=== PATIENT | female | born 1985 | race Caucasian/White ===

== ENCOUNTER 2018-04-15 10:46 | Emergency (ER) | payer SELFPAY ==
[2018-04-15] MEDS ORDERED: IPRATROPIUM/ALBUTEROL 0.5-2.5 MG/3 ML AMPUL NEB ONE (13:12)
[2018-04-15] MEDS ORDERED: ONDANSETRON HCL INJ/PF 4 MG/2 ML SDV IV ONE (13:12)
--- NOTE | 2018-04-15 13:16 | ER Document Report ---
ED Medical Screen (RME) - General Chief Complaint: Abdominal Pain Stated Complaint: ABDOMINAL PAIN Time Seen by Provider: 04/15/18 12:58 Mode of Arrival: Ambulatory Information source: Patient Notes: 32-year-old female presents with bilateral low back pain, left lower quadrant abdominal pain, nausea, cough, wheezing. I have greeted and performed a rapid initial assessment of this patient. A comprehensive ED assessment and evaluation of the patient, analysis of test results and completion of medical decision making process we will be contacted by additional ED providers. PHYSICAL EXAMINATION: Vital signs reviewed GENERAL: Ill-appearing LUNGS: No respiratory distress Musculoskeletal: Normal range of motion NEUROLOGICAL: Normal speech, normal gait. PSYCH: Normal mood, normal affect. SKIN: Warm, Dry, normal turgor, no rashes or lesions noted. TRAVEL OUTSIDE OF THE [place] IN LAST 30 DAYS: No - HPI Onset: Other Onset/Duration: Persistent Quality of pain: Throbbing Severity: Moderate Associated Symptoms: Abdominal pain, Chills, Cough (productive), Nausea Exacerbated by: Denies Relieved by: Denies Similar symptoms previously: Yes Recently seen / treated by doctor: No - Related Data Smoking: Cigarettes Frequency of alcohol use: None Drug Abuse: None Allergies/Adverse Reactions: No Known Allergies Allergy (Verified 04/15/18 12:45) Past Medical History - Social History Frequency of alcohol use: None Drug Abuse: None Renal/ Medical History: Denies: Hx Peritoneal Dialysis Past Surgical History: Reports: Hx Gynecologic Surgery - , Hx Hysterectomy, Hx Oral Surgery Physical Exam - Vital signs Vitals: Temp Pulse Resp BP Pulse Ox 97.8 F 76 16 128/82 H 99 04/15/18 10:52 04/15/18 10:52 04/15/18 10:52 04/15/18 10:52 04/15/18 10:52 Course - Vital Signs Vital signs: Temp Pulse Resp BP Pulse Ox 97.8 F 76 16 128/82 H 99 04/15/18 10:52 04/15/18 10:52 04/15/18 10:52 04/15/18 10:52 04/15/18 10:52
[2018-04-15 13:29] LABS: ABSOLUTE BASOPHILS # (AUTO) 0.1 10^3/uL (0.0-0.2); ABSOLUTE EOSINOPHILS # (AUTO) 0.3 10^3/uL (0.0-0.6); ABSOLUTE LYMPHOCYTES (AUTO) 3.1 10^3/uL (0.5-4.7); ABSOLUTE MONOCYTES (AUTO) 0.8 10^3/uL (0.1-1.4); ABSOLUTE NEUT (AUTO) 5.6 10^3/uL (1.7-8.2); BASOPHILS % (AUTO) 0.7 % (0-2); HEMOGLOBIN 15.7 g/dL (12.0-15.5); LYMPHOCYTES % (AUTO) 31.4 % (13-45); MEAN CORPUSCULAR HEMOGLOBIN 29.3 pg (27.0-33.4); MEAN CORPUSCULAR VOLUME 86 fl (80-97); MONOCYTES % (AUTO) 7.9 % (3-13); PLATELET COUNT 277 10^3/uL (150-450); RED BLOOD COUNT 5.34 10^6/uL (3.72-5.28); RED CELL DISTRIBUTION WIDTH 15.7 % (11.5-14.0); TOTAL CELLS COUNTED % (AUTO) 100 %; WHITE BLOOD COUNT 9.9 10^3/uL (4.0-10.5)
[2018-04-15 13:39] LABS: AMORPHOUS SEDIMENT,URINE TRACE /HPF; APPEARANCE,URINE SLIGHTLY-CLOUDY; BILIRUBIN,URINE NEGATIVE (NEGATIVE); COLOR,URINE YELLOW; GLUCOSE, URINE NEGATIVE (NEGATIVE); KETONES,URINE NEGATIVE (NEGATIVE); LEUKOCYTE ESTERASE,URINE NEGATIVE (NEGATIVE); NITRITE,URINE NEGATIVE (NEGATIVE); PROTEIN,URINE NEGATIVE (NEGATIVE); URINE SPECIFIC GRAVITY 1.021; UROBILINOGEN,URINE NEGATIVE mg/dL (<2.0)
[2018-04-15 13:48] LABS: ALANINE AMINOTRANSFERASE 37 U/L (9-52); ALBUMIN 5.1 g/dL (3.5-5.0); ALKALINE PHOSPHATASE 117 U/L (38-126); ANION GAP 11 (5-19); ASPARTATE AMINO TRANSFERASE 31 U/L (14-36); BILIRUBIN,DIRECT 0.3 mg/dL (0.0-0.4); BILIRUBIN,TOTAL 0.6 mg/dL (0.2-1.3); BLOOD UREA NITROGEN 11 mg/dL (7-20); CARBON DIOXIDE 24 mmol/L (22-30); CHLORIDE 109 mmol/L (98-107); GLUCOSE 100 mg/dL (75-110); LIPASE 85.8 U/L (23-300); POTASSIUM 4.6 mmol/L (3.6-5.0); SODIUM 143.7 mmol/L (137-145); TOTAL PROTEIN 8.8 g/dL (6.3-8.2)
--- NOTE | 2018-04-15 14:08 | RADIOLOGY REPORT (SQ) ---
EXAM DESCRIPTION: CHEST 2 VIEWS COMPLETED DATE/TIME: 04/15/2018 1:47 pm REASON FOR STUDY: cough wheezing COMPARISON: None. EXAM PARAMETERS: NUMBER OF VIEWS: two views TECHNIQUE: Digital Frontal and Lateral radiographic views of the chest acquired. RADIATION DOSE: NA LIMITATIONS: none FINDINGS: LUNGS AND PLEURA: No opacities, masses or pneumothorax. No pleural effusion. MEDIASTINUM AND HILAR STRUCTURES: No masses or contour abnormalities. HEART AND VASCULAR STRUCTURES: Heart normal size. No evidence for failure. BONES: No acute findings. HARDWARE: None in the chest. OTHER: No other significant finding. IMPRESSION: NO ACUTE RADIOGRAPHIC FINDING IN THE CHEST. TECHNICAL DOCUMENTATION: JOB ID: [id number] [employer]- All Rights Reserved Reading location - IP/workstation name: [email or web address]
[2018-04-15] MEDS ORDERED: MORPHINE SULFATE 10 MG/ML INJ IV ONE (14:10)
--- NOTE | 2018-04-15 16:28 | ER Document Report ---
ED General - General Chief Complaint: Abdominal Pain Stated Complaint: ABDOMINAL PAIN Time Seen by Provider: 04/15/18 12:58 Mode of Arrival: Ambulatory TRAVEL OUTSIDE OF THE [place] IN LAST 30 DAYS: No - HPI Notes: Patient is a 32-year-old female that presents to the emergency department for chief complaint of abdominal pain and low back pain. Patient reports achy bilateral low back pain for the past 1-1.5 weeks. She states it feels like a pressure when she is laying backwards. She denies any pain with range of motion. She denies any injury to her low back. She is states the pain is nonradiating with no relieving factors. She has not taken any aenj-ukk-bnpgjeo medication for her pain. She also reports associated nausea with no vomiting. She reports 1-2 episodes of diarrhea over the last week as well. She denies any fevers but has had intermittent chills. Patient is concerned about a mass in her left lower abdomen. She states she first noticed it about a year ago. She was seen in December 2017 and was advised to get a CT scan which was never done because there was a in her family. Patient states she feels like this mass is getting bigger. She does report a history of cancer in 2017 that was treated with hysterectomy. She did not have chemotherapy or radiation. Patient is concerned the mass may be cancerous. She also states she has had a cough for the last few years and feels wheezy. She denies any change in her wheezing or cough today. Past Medical History: History of uterine cancer Past Surgical History: Hysterectomy Social History: Daily tobacco. Denies alcohol and drug use Family History: Reviewed and noncontributory for presenting illness Allergies: Reviewed, see documented allergy list. REVIEW OF SYSTEMS: CONSTITUTIONAL : No fever chills No diaphoresis No recent illness EENT: No vision changes No congestion No sore throat CARDIOVASCULAR: No chest pain No palpitations RESPIRATORY: No shortness of breath cough No difficulty breathing GASTROINTESTINAL: abdominal pain nausea No vomiting diarrhea GENITOURINARY: No dysuria No hematuria No difficulty urinating MUSCULOSKELETAL: back pain No leg pain No arm pain SKIN: No rashes No lesions LYMPHATIC: No swollen, enlarged glands. NEUROLOGICAL: No lightheadedness No headache No weakness No paresthesias PSYCHIATRIC: No anxiety No depression PHYSICAL EXAMINATION: Vital signs reviewed, nursing noted reviewed. GENERAL: Well-appearing, well-nourished and in no acute distress. HEAD: Atraumatic, normocephalic. EYES: Eyes appear normal, extraocular movements intact, sclera anicteric, conjunctiva are normal. ENT: nares patent, oropharynx clear without exudates. Moist mucous membranes. NECK: Normal range of motion, supple without lymphadenopathy LUNGS: Bilateral diffuse wheezing, no tachypnea, no accessory muscle use HEART: Regular rate and rhythm without murmurs ABDOMEN: 2.0 cm well-circumscribed tender mass in left lower abdomen that feels superficial in the subcutaneous tissue, there is no overlying skin changes. No rebound, guarding, or rigidity. No masses appreciated. EXTREMITIES: Nontender, good range of motion, no pitting or edema. Back: Normal range of motion. No midline or paraspinal thoracic or lumbar tenderness NEUROLOGICAL: No focal neurological deficits. Moves all extremities spontaneously Motor and sensory grossly intact on exam. PSYCH: Normal mood, normal affect. SKIN: Warm, Dry, normal turgor, no rashes or lesions noted on exposed skin - Related Data Allergies/Adverse Reactions: No Known Allergies Allergy (Verified 04/15/18 12:45) Past Medical History - General Information source: Patient - Social History Smoking Status: Current Every Day Smoker Frequency of alcohol use: None Drug Abuse: None Family History: Reviewed & Not Pertinent Patient has suicidal ideation: No Patient has homicidal ideation: No Renal/ Medical History: Denies: Hx Peritoneal Dialysis Past Surgical History: Reports: Hx Gynecologic Surgery - , Hx Hys terectomy, Hx Oral Surgery Physical Exam - Vital signs Vitals: Temp Pulse Resp BP Pulse Ox 97.8 F 76 16 128/82 H 99 04/15/18 10:52 04/15/18 10:52 04/15/18 10:52 04/15/18 10:52 04/15/18 10:52 Course - Re-evaluation Re-evalutation: 04/15/18 16:27 Vitals reviewed. Nursing notes reviewed. Patient is afebrile and nontoxic in appearance. She was ordered DuoNeb for her wheezing. Patient is a daily smoker and was counseled on tobacco cessation as well as albuterol use for her wheezing. Chest x-ray shows no acute process. Patient's blood work is normal. Because of her history of cancer and a palpable left lower abdominal mass CT scan will be ordered to further evaluate her symptoms. Patient does feel improved after receiving antiemetics and pain medication in triage. Laboratory 04/15/18 04/15/18 04/15/18 12:50 13:15 13:15 WBC 9.9 RBC 5.34 H Hgb 15.7 H Hct 46.0 MCV 86 MCH 29.3 MCHC 34.0 RDW 15.7 H Plt Count 277 Seg Neutrophils % 57.0 Lymphocytes % 31.4 Monocytes % 7.9 Eosinophils % 3.0 Basophils % 0.7 Absolute Neutrophils 5.6 Absolute Lymphocytes 3.1 Absolute Monocytes 0.8 Absolute Eosinophils 0.3 Absolute Basophils 0.1 Sodium 143.7 Potassium 4.6 Chloride 109 H Carbon Dioxide 24 Anion Gap 11 BUN 11 Creatinine 0.63 Est GFR ( Amer) > 60 Est GFR (Non-Af Amer) > 60 Glucose 100 Calcium 10.0 Total Bilirubin 0.6 Direct Bilirubin 0.3 Neonat Total Bilirubin Not Reportable Neonat Direct Bilirubin Not Reportable Neonat Indirect Bili Not Reportable AST 31 ALT 37 Alkaline Phosphatase 117 Total Protein 8.8 H Albumin 5.1 H Lipase 85.8 Urine Color YELLOW Urine Appearance SLIGHTLY-CLOUDY Urine pH 6.0 Ur Specific Custer 1.021 Urine Protein NEGATIVE Urine Glucose (UA) NEGATIVE Urine Ketones NEGATIVE Urine Blood NEGATIVE Urine Nitrite NEGATIVE Urine Bilirubin NEGATIVE Urine Urobilinogen NEGATIVE Ur Leukocyte Esterase NEGATIVE Urine WBC (Auto) 2 Urine RBC (Auto) 8 Urine Bacteria (Auto) TRACE Squamous Epi Cells Auto 6 Amorphous Sediment Auto TRACE Urine Mucus (Auto) FEW Urine Ascorbic Acid NEGATIVE Urine HCG, Qual NEGATIVE Chest X-Ray 04/15/18 13:10 IMPRESSION: NO ACUTE RADIOGRAPHIC FINDING IN THE CHEST. 04/15/18 18:[address] scan does show 2 small ventral hernias. I discussed the area of patient's concern with the radiologist. There is a small nonspecific subcutaneous enhancement on slight 81 that may be a new mass. I did advise patient to follow with her primary care to discuss biopsy versus repeat imaging since the mass seems to be growing over the last few months. The remainder of her workup is unremarkable. She will be discharged home in stable condition for further outpatient management. Abdomen/Pelvis CT 04/15/18 00:00 IMPRESSION: There are 2 small ventral hernias. There are no acute findings in the abdomen or pelvis. Chest X-Ray 04/15/18 13:10 IMPRESSION: NO ACUTE RADIOGRAPHIC FINDING IN THE CHEST. - Vital Signs Vital signs: Temp Pulse Resp BP Pulse Ox 97.8 F 76 16 128/82 H 99 04/15/18 10:52 04/15/18 10:52 04/15/18 10:52 04/15/18 10:52 04/15/18 10:52 - Laboratory Result Diagrams: 04/15/18 13:15 04/15/18 13:15 Laboratory results interpreted by me: 04/15/18 04/15/18 13:15 13:15 RBC 5.34 H Hgb 15.7 H RDW 15.7 H Chloride 109 H Total Protein 8.8 H Albumin 5.1 H Discharge - Discharge Clinical Impression: Subcutaneous mass, Wheezing Back pain Qualifiers: Back pain location: low back pain Chronicity: acute Back pain laterality: bilateral Sciatica presence: without sciatica Qualified Code(s): M54.5 - Low back pain Condition: Stable Disposition: HOME, SELF-CARE Instructions: Bronchitis With Bronchospasm (Wheezing) ([facility]), Abdominal Pain ([facility]), Low Back Pain ([facility]) Additional Instructions: Please return to the emergency department if you have any worsening, or concern of your symptoms. Please return to the emergency department if you develop chest pain, difficulty breathing, severe abdominal pain, or ongoing vomiting. Please follow-up with your primary care physician in 2-3 days and any other recommended physicians. If prescribed, take all medications as directed. If you have any questions or concerns do not hesitate to return the emergency department for evaluation. There is a nonspecific finding on your CT scan where you are feeling the nodule in your left lower abdomen. Given your history of cancer further investigation to the etiology of this mass is warranted. Please follow with your primary care doctor to discuss arranging biopsy or follow-up imaging. Prescriptions: Albuterol Sulfate [Proair HFA Inhalation Aerosol 8.5 gm MDI] 2 puff IH Q4H PRN #1 mdi PRN Reason: wheezing Forms: Smoking Cessation Education Referrals: [facility] [Provider Group] - Follow up in 3-5 days
--- NOTE | 2018-04-15 17:40 | RADIOLOGY REPORT (SQ) ---
EXAM DESCRIPTION: CT ABD/PELVIS WITH IV ORAL COMPLETED DATE/TIME: 04/15/2018 4:47 pm REASON FOR STUDY: h/o abd mass COMPARISON: None. TECHNIQUE: CT scan of the abdomen and pelvis performed using helical scanning technique with dynamic intravenous contrast injection. Oral contrast. Images reviewed with lung, soft tissue, and bone win dows. Reconstructed coronal and sagittal MPR images reviewed. Delayed images for evaluation of the ur inary system also acquired. All images stored on PACS. All CT scanners at this facility use dose modulation, iterative reconstruction, and/or weight based d osing when appropriate to reduce radiation dose to as low as reasonably achievable (ALARA). [facility]: Dose Right [facility]: CareDose [facility]: Dose Right [facility]: Teradose 4D [facility]: [employer] CONTRAST TYPE AND DOSE: contrast/concentration: Isovue 350.00 mg/ml; Total Contrast Delivered: 96.0 ml; Total Saline Delivered: 71.0 ml RENAL FUNCTION: BUN 11 creatinine 0.63 RADIATION DOSE: CT Rad equipment meets quality standard of care and radiation dose reduction techniq ues were employed. CTDIvol: 16.2 - 19.8 mGy. DLP: 1970 mGy-cm.. LIMITATIONS: None. FINDINGS: LOWER CHEST: No significant findings. No nodules or infiltrates. LIVER: Normal size. No masses. No dilated ducts. SPLEEN: Normal size. No focal lesions. PANCREAS: No masses. No significant calcifications. No adjacent inflammation or peripancreatic fluid collections. Pancreatic duct not dilated. GALLBLADDER: No identified stones by CT criteria. No inflammatory changes to suggest cholecystitis. ADRENAL GLANDS: No significant masses or asymmetry. RIGHT KIDNEY AND URETER: No solid masses. No significant calcifications. No hydronephrosis or hyd roureter. LEFT KIDNEY AND URETER: No solid masses. No significant calcifications. No hydronephrosis or hydr oureter. AORTA AND VESSELS: No aneurysm. No dissection. Renal arteries, SMA, celiac without stenosis. RETROPERITONEUM: No retroperitoneal adenopathy, hemorrhage or masses. BOWEL AND PERITONEAL CAVITY: No masses or inflammatory changes. No free fluid or peritoneal masses. APPENDIX: Normal. PELVIS: No mass. No free fluid. Normal bladder. ABDOMINAL WALL: There is a tiny ventral hernia just to the right in midline disc that contains only f at. Image 47. Small umbilical hernia contains only fat. See image 53. BONES: No significant or acute findings. OTHER: No other significant finding. IMPRESSION: There are 2 small ventral hernias. There are no acute findings in the abdomen or pelvis . TECHNICAL DOCUMENTATION: JOB ID: [id number] Quality ID # [id number]: Final reports with documentation of one or more dose reduction techniques (e.g., Au tomated exposure control, adjustment of the mA and/or kV according to patient size, use of iterative reconstruction technique) 2010 [employer]- All Rights Reserved Reading location - IP/workstation name: [email or web address]
[2018-04-15 18:34] VITALS: BP 105/68
== END 2018-04-15 18:34 | disposition home or self-care (01) ==
LOC: ER 10:46
DX: R10.9 Unspecified abdominal pain (principal); M54.5 Low back pain; R19.7 Diarrhea, unspecified; Z90.710 Acquired absence of both cervix and uterus; R06.2 Wheezing; R19.04 Left lower quadrant abdominal swelling, mass and lump; F17.210 Nicotine dependence, cigarettes, uncomplicated; Z85.42 Personal history of malignant neoplasm of other parts of uterus
CPT/HCPCS: 94640; 99284; 96374; 96375; 36415; 83690; 85025; 81025; 80053; 81001; 71046; 74177; J2270; J2405; J7620

== ENCOUNTER 2018-11-14 11:25 | Emergency (ER) | payer SELFPAY ==
[2018-11-14] MEDS ORDERED: IBUPROFEN 800 MG TABLET PO ONE (11:46)
--- NOTE | 2018-11-14 11:46 | ER Document Report ---
ED Medical Screen (RME) - General Chief Complaint: Hand Injury Stated Complaint: HAND INJURY Time Seen by Provider: 11/14/18 11:43 Mode of Arrival: Ambulatory Information source: Patient Notes: This 33-year-old female presents emergency department with complaints of right hand right wrist pain. Reports she tripped over her puppy the other day and landed on her wrist and hand. Reports tender snuffbox. Thenar area is swollen ecchymosis. Patient is right-handed I have greeted and performed a rapid initial assessment of this patient. A comprehensive ED assessment and evaluation of the patient, analysis of test results and completion of the medical decision making process will be conducted by additional ED providers. Dictation of this chart was performed using voice recognition software; therefore, there may be some unintended grammatical errors. TRAVEL OUTSIDE OF THE [place] IN LAST 30 DAYS: No - Related Data Allergies/Adverse Reactions: No Known Allergies Allergy (Verified 11/14/18 11:39) Past Medical History - Social History Chew tobacco use (# tins/day): No Frequency of alcohol use: None Drug Abuse: None Renal/ Medical History: Denies: Hx Peritoneal Dialysis Past Surgical History: Reports: Hx Gynecologic Surgery - , Hx Hysterectomy, Hx Oral Surgery Physical Exam - Vital signs Vitals: Temp Pulse Resp BP Pulse Ox 97.9 F 74 16 130/74 H 98 11/14/18 11:28 11/14/18 11:28 11/14/18 11:28 11/14/18 11:28 11/14/18 11:28 Course - Vital Signs Vital signs: Temp Pulse Resp BP Pulse Ox 97.9 F 74 16 130/74 H 98 11/14/18 11:28 11/14/18 11:28 11/14/18 11:28 11/14/18 11:28 11/14/18 11:28
--- NOTE | 2018-11-14 12:46 | RADIOLOGY REPORT (SQ) ---
EXAM DESCRIPTION: HAND RIGHT 3 VIEWS COMPLETED DATE/TIME: 11/14/2018 12:08 pm REASON FOR STUDY: hand injury tender snuff box COMPARISON: None. EXAM PARAMETERS: NUMBER OF VIEWS: Three views. TECHNIQUE: AP, lateral and oblique radiographic images acquired of the right hand. LIMITATIONS: None. FINDINGS: MINERALIZATION: Normal. BONES: No acute fracture or dislocation. No worrisome bone lesions. JOINTS: No effusions. SOFT TISSUES: No soft tissue swelling. No foreign body. OTHER: No other significant finding. IMPRESSION: NEGATIVE STUDY OF THE RIGHT HAND. NO RADIOGRAPHIC EVIDENCE OF ACUTE INJURY. TECHNICAL DOCUMENTATION: JOB ID: [id number] [employer]- All Rights Reserved Reading location - IP/workstation name: [email or web address]
--- NOTE | 2018-11-14 12:47 | RADIOLOGY REPORT (SQ) ---
EXAM DESCRIPTION: WRIST RIGHT 3 VIEWS COMPLETED DATE/TIME: 11/14/2018 12:08 pm REASON FOR STUDY: hand injury tender snuff box COMPARISON: None. NUMBER OF VIEWS: Three views. TECHNIQUE: AP, lateral, and oblique radiographic images acquired of the right wrist. LIMITATIONS: None. FINDINGS: MINERALIZATION: Normal. BONES: No acute fracture or dislocation. No worrisome bone lesions. Normal alignment. SOFT TISSUES: No soft tissue swelling. No foreign body. OTHER: No other significant finding. IMPRESSION: NEGATIVE STUDY OF THE RIGHT WRIST. NO RADIOGRAPHIC EVIDENCE OF ACUTE INJURY. TECHNICAL DOCUMENTATION: JOB ID: [id number] [employer]- All Rights Reserved Reading location - IP/workstation name: [email or web address] FRONT END [email or web address]
--- NOTE | 2018-11-14 13:21 | ER Document Report ---
HPI - HPI Time Seen by Provider: 11/14/18 11:43 Pain Level: 3 Notes: Patient is a 33-year-old female no significant past medical history presents complaining of right lateral anterior palm bruising and right thumb pain status post injury 2 days ago. Patient states that she fell on an outstretched hand. Patient states that she has had swelling and bruising since then with pain more so associated with the thumb. The pain does not radiate. Denies drug allergies. Denies any headache, fever, head injury, neck pain, URI, sore throat, chest pain, palpitations, syncope, cough, shortness of breath, wheeze, dyspnea, abdominal pain, nausea/vomiting/diarrhea, urinary retention, dysuria, hematuria, loss of control of bowel or bladder, numbness/tingling, muscle paralysis, or rash. - ROS Systems Reviewed and Negative: Yes All other systems reviewed and negative - REPRODUCTIVE Reproductive: DENIES: : - MUSCULOSKELETAL Musculoskeletal: REPORTS: Extremity pain - R Hand Past Medical History - General Information source: Patient - Social History Smoking Status: Current Every Day Smoker Chew tobacco use (# tins/day): No Frequency of alcohol use: Occasional Drug Abuse: None Family History: Reviewed & Not Pertinent Patient has suicidal ideation: No Patient has homicidal ideation: No Renal/ Medical History: Denies: Hx Peritoneal Dialysis Past Surgical History: Reports: Hx Gynecologic Surgery - , Hx Hysterectomy, Hx Oral Surgery Vertical Provider Document - CONSTITUTIONAL Agree With Documented VS: Yes Notes: PHYSICAL EXAMINATION: GENERAL: Well-appearing, well-nourished and in no acute distress. HEAD: Atraumatic, normocephalic. NECK: Normal range of motion, supple without lymphadenopathy. No midline tenderness. LUNGS: Breath sounds clear to auscultation bilaterally and equal. No wheezes rales or rhonchi. HEART: Regular rate and rhythm without murmurs, rubs, gallops. Musculoskeletal: Rt hand/wrist: + swelling and ecchymosis to the rt thenar eminence area with + tenderness to the area and area of the scaphoid/rt thumb. No erythema, warmth, or deformity noted. N/V intact distal. FROM to passive/active at the wrist/fingers. Strength 4+/5 to venereal disease control head. Tinel/phalen neg. No other bony tenderness. Gamekeeper seems negative, but limited exam overall. Extremities: No cyanosis, clubbing, or edema b/l. Peripheral pulses 2+. Capillary refill less than 3 seconds. NEUROLOGICAL: Normal speech, normal gait. Normal sensory, motor exams otherwise unremarkable PSYCH: Normal mood, normal affect. SKIN: see above. No rash - INFECTION CONTROL TRAVEL OUTSIDE OF THE [place] IN LAST 30 DAYS: No Course - Re-evaluation Re-evalutation: 11/14/18 Patient is an afebrile, well-hydrated, 33-year-old female who presents to the ED with Rt thumb pain which I suspect to be a contusion vs sprain/strain. Vitals are acceptable without any significant tachycardia, tachypnea, or hypoxia. PE is otherwise unremarkable for any neurovascular compromise, obvious tendon/ligament rupture, obvious fracture/dislocation, septic joint. X-ray was unremarkable for any acute pathology. I did review the possibility of scaphoid involvement as well as gamekeeper's thumb with the patient which is why we placed a thumb spica splint. Patient is nontoxic-appearing. No other labs or imaging warranted at this time based on H&P. Conservative measures otherwise for symptoms. Recheck with your PCM in 3-5 days. Patient is to schedule an appointment with orthopedics for further evaluation and management. Return to the ED with any worsening/concerning symptoms otherwise as reviewed in discharge. Patient is in agreement. - Vital Signs Vital signs: Temp Pulse Resp BP Pulse Ox 97.9 F 74 16 130/74 H 98 11/14/18 11:28 11/14/18 11:28 11/14/18 11:28 11/14/18 11:28 11/14/18 11:28 Procedures - Immobilization Right Thumb Pre-Proc Neuro Vasc Exam: Normal Immobilizer type: Thumb spica Performed by: PCT Post-Proc Neuro Vasc Exam: Normal, Unchanged from pre-exam Discharge - Discharge Clinical Impression: Pain of right thumb Condition: Stable Disposition: HOME, SELF-CARE Additional Instructions: Rest, Ice, Compression, Elevation Use splint as directed Tylenol/ibuprofen as needed F/u with your PCP in 3-5 days for a recheck Call orthopedics today/tomorrow to schedule an appointment for further evaluation and management Return to the ED with any worsening symptoms and/or development of fever, headache, chest pain, palpitations, syncope, shortness of breath, trouble breathing, abdominal pain, n/v/d, muscle weakness/paralysis, numbness/tingling, swelling, redness, or other worsening symptoms that are concerning to you. Forms: Elevated Blood Pressure, Smoking Cessation Education Referrals: HERBERT ROLLE MD [ACTIVE PROVISIONAL STAFF] - Follow up as needed PORTER CORONADO DO [ACTIVE STAFF] - Follow up as needed
[2018-11-14 13:46] VITALS: BP 107/77
== END 2018-11-14 13:46 | disposition home or self-care (01) ==
LOC: ER 11:25
DX: M79.644 Pain in right finger(s) (principal); S60.221A Contusion of right hand, initial encounter; W01.0XXA Fall on same level from slipping, tripping and stumbling without subsequent striking against object, initial encounter; F17.200 Nicotine dependence, unspecified, uncomplicated
CPT/HCPCS: 99283

== ENCOUNTER 2019-01-28 22:06 | Emergency (ER) | payer MEDICAID ==
--- NOTE | 2019-01-28 22:25 | ER Document Report ---
ED Medical Screen (RME) - General Stated Complaint: STOMACH PAIN Time Seen by Provider: 01/28/19 22:18 Mode of Arrival: Ambulatory Information source: Patient Notes: 33-year-old female presents today with complaints of abdominal distention stomach pain for the past 2 nights with some diarrhea. She reports she is feeling constipated and nauseated. 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 Patient abdomen is distended firm to touch. She reports she is been taking Tylenol Motrin without relief of symptoms. Declines nausea medicine. I have greeted and performed a rapid initial assessment of this patient. A comprehensive ED assessment and evaluation of the patient, analysis of test results and completion of the medical decision making process will be conducted by additional ED providers. Dictation of this chart was performed using voice recognition software; therefore, there may be some unintended grammatical errors. TRAVEL OUTSIDE OF THE [place] IN LAST 30 DAYS: No - Related Data Allergies/Adverse Reactions: No Known Allergies Allergy (Verified 01/28/19 22:16) Past Medical History Renal/ Medical History: Denies: Hx Peritoneal Dialysis Past Surgical History: Reports: Hx Gynecologic Surgery - , Hx Hysterectomy, Hx Oral Surgery Physical Exam - Vital signs Vitals: Temp Pulse Resp BP Pulse Ox 97.7 F 85 20 134/82 H 98 01/28/19 22:16 01/28/19 22:16 01/28/19 22:16 01/28/19 22:16 01/28/19 22:16 Course - Vital Signs Vital signs: Temp Pulse Resp BP Pulse Ox 97.7 F 85 20 134/82 H 98 01/28/19 22:16 01/28/19 22:16 01/28/19 22:16 01/28/19 22:16 01/28/19 22:16
[2019-01-28 22:59] LABS: ABSOLUTE BASOPHILS # (AUTO) 0.1 10^3/uL (0.0-0.2); ABSOLUTE EOSINOPHILS # (AUTO) 0.3 10^3/uL (0.0-0.6); ABSOLUTE MONOCYTES (AUTO) 0.9 10^3/uL (0.1-1.4); ABSOLUTE NEUT (AUTO) 6.5 10^3/uL (1.7-8.2); BASOPHILS % (AUTO) 0.8 % (0-2); EOSINOPHILS % (AUTO) 2.8 % (0-6); HEMATOCRIT 44.2 % (36.0-47.0); LYMPHOCYTES % (AUTO) 33.9 % (13-45); MEAN CORPUSCULAR HEMOGLOBIN 30.6 pg (27.0-33.4); MEAN CORPUSCULAR VOLUME 90 fl (80-97); MONOCYTES % (AUTO) 7.6 % (3-13); PLATELET COUNT 289 10^3/uL (150-450); RED CELL DISTRIBUTION WIDTH 13.5 % (11.5-14.0); SEGMENTED NEUTROPHILS % (AUTO) 54.9 % (42-78); TOTAL CELLS COUNTED % (AUTO) 100 %; WHITE BLOOD COUNT 11.9 10^3/uL (4.0-10.5)
[2019-01-28 23:01] LABS: APPEARANCE,URINE CLOUDY; BILIRUBIN,URINE NEGATIVE (NEGATIVE); COLOR,URINE YELLOW; GLUCOSE, URINE NEGATIVE (NEGATIVE); KETONES,URINE NEGATIVE (NEGATIVE); LEUKOCYTE ESTERASE,URINE NEGATIVE (NEGATIVE); NITRITE,URINE NEGATIVE (NEGATIVE); PROTEIN,URINE NEGATIVE (NEGATIVE); UROBILINOGEN,URINE NEGATIVE mg/dL (<2.0)
[2019-01-28 23:11] LABS: ALBUMIN 4.3 g/dL (3.5-5.0); ALKALINE PHOSPHATASE 108 U/L (38-126); ANION GAP 12 (5-19); ASPARTATE AMINO TRANSFERASE 28 U/L (14-36); BILIRUBIN,DIRECT 0.2 mg/dL (0.0-0.4); BILIRUBIN,TOTAL 0.4 mg/dL (0.2-1.3); BLOOD UREA NITROGEN 18 mg/dL (7-20); CALCIUM 9.7 mg/dL (8.4-10.2); CARBON DIOXIDE 24 mmol/L (22-30); CHLORIDE 103 mmol/L (98-107); GLUCOSE 105 mg/dL (75-110); POTASSIUM 4.6 mmol/L (3.6-5.0); TOTAL PROTEIN 8.2 g/dL (6.3-8.2)
--- NOTE | 2019-01-28 23:46 | RADIOLOGY REPORT (SQ) ---
EXAM DESCRIPTION: [facility]: US ABDOMEN CLINICAL HISTORY: 33 years Female; abd pain swelling hx mass TECHNIQUE: Abdominal ultrasound was performed. COMPARISON: CT 04/15/2018 FINDINGS: Liver: 19 cm long, somewhat echogenic. No intrahepatic ductal distention. No focal lesions. Gallbladder: normal with no gallstones or sonographic evidence for acute cholecystitis. Common bile duct: 4 mm. Pancreas: visualized portions are unremarkable. Spleen: 10.9 cm. Portal venous flow is hepatopedal, normal. No free fluid. Right kidney: 13.3 x 4.1 x 6.3 cm. No hydronephrosis. Left kidney: 12.1 x 6.2 x 5.3 cm. No hydronephrosis. Aorta:Visualized portions are within normal limits. IVC: Visualized portions are within normal limits. In the area of complaint superior to the umbilicus, there are no abnormalities of the anterior abdominal wall. Note that a fat-containing umbilical hernia was present in this area on 04/15/2018. IMPRESSION: 1. No acute findings 2. Hepatic steatosis 3. No lesion in the anterior abdominal wall, although a fat-containing hernia may not be apparent with this technique.
[2019-01-29] MEDS ORDERED: ACETAMINOPHEN 325 MG TABLET PO ONE (02:25)
[2019-01-29] MEDS ORDERED: ONDANSETRON HCL INJ/PF 4 MG/2 ML SDV IV ONE (02:34)
[2019-01-29] MEDS ORDERED: HYDROMORPHONE HCL INJ/PF 2 MG/ML AMPULE IV ONE (02:34)
[2019-01-29] MEDS ORDERED: NORMAL SALINE 1000 ML 1,000 ML IV ONE (02:34)
--- NOTE | 2019-01-29 02:37 | ER Document Report ---
ED GI/ - General Chief Complaint: Abdominal Pain Stated Complaint: STOMACH PAIN Time Seen by Provider: 01/28/19 22:18 Primary Care Provider: [facility] [Provider Group] - Follow up tomorrow Mode of Arrival: Ambulatory Notes: Patient is a 33-year-old female that comes to the emergency department for chief complaint of sharp mid abdominal pain that started earlier today. She reports nausea but she denies vomiting. Pain is around the umbilicus. She states she thinks she felt "a mass" sticking out and she became very afraid. She states she has had a cough for several days now. She also states she had a firm bowel movement earlier today. She denies hematochezia. She has had a complete hysterectomy, , oral surgery, denies any daily medications, denies medical history otherwise. She smokes. TRAVEL OUTSIDE OF THE [place] IN LAST 30 DAYS: No - Related Data Allergies/Adverse Reactions: No Known Allergies Allergy (Verified 01/28/19 22:16) Past Medical History - General Information source: Patient - Social History Smoking Status: Current Every Day Smoker Smoking Education Provided: Yes - <3 min Frequency of alcohol use: None Drug Abuse: None Lives with: Family Family History: Reviewed & Not Pertinent Patient has suicidal ideation: No Patient has homicidal ideation: No Renal/ Medical History: Denies: Hx Peritoneal Dialysis Past Surgical History: Reports: Hx Gynecologic Surgery - , Hx Hysterectomy, Hx Oral Surgery - Immunizations Immunizations up to date: Yes Hx Diphtheria, Pertussis, Tetanus Vaccination: Yes Review of Systems - Review of Systems Constitutional: No symptoms reported EENT: No symptoms reported Cardiovascular: No symptoms reported Respiratory: No symptoms reported Gastrointestinal: See HPI Genitourinary: No symptoms reported Female Genitourinary: No symptoms reported Musculoskeletal: No symptoms reported Skin: No symptoms reported Hematologic/Lymphatic: No symptoms reported Neurological/Psychological: No symptoms reported Physical Exam - Vital signs Vitals: Temp Pulse Resp BP Pulse Ox 97.7 F 85 20 134/82 H 98 01/28/19 22:16 12 22:16 12 22:16 01/28/19 22:16 01/28/19 22:16 - Notes Notes: GENERAL: Alert and interactive, anxious HEAD: Normocephalic, atraumatic. EYES: Pupils equal, round, and reactive to light. Extraocular movements intact. ENT: Oral mucosa moist, tongue midline. Oropharynx unremarkable. Airway patent. NECK: Full range of motion. Supple. Trachea midline. LUNGS: Clear to auscultation bilaterally, no wheezes, rales, or rhonchi. No respiratory distress. HEART: Regular rate and rhythm. No murmur ABDOMEN: Scar that is vertical at the umbilicus. Adjacent to this there appears to be a ventral hernia which is borderline, no overt hernia sticking out or strangulation. No rigidity or guarding, no discoloration. GENITOURINARY: Deferred EXTREMITIES: Moves all 4 extremities spontaneously. No edema, normal radial and dorsalis pedis pulses bilaterally. No cyanosis. BACK: no cervical, thoracic, lumbar midline tenderness. No saddle anesthesia, normal distal neurovascular exam. Moves all extremities in full range of motion. NEUROLOGICAL: Alert and oriented x3. Normal speech. Cranial nerves II through XII grossly intact. PSYCH: Anxious, restless, tearful SKIN: Warm, dry, normal turgor. No rashes or lesions noted. Course - Re-evaluation Re-evalutation: Patient with some tenderness over what appears to be a ventral hernia although there does not appear to be incarcerated hernia. This does appear to go back in. Patient initially anxious and mildly uncomfortable but after I discussed with her she became calm and relaxed. She does report some pain and she was given pain medication for this. Ultrasound nonspecific, CBC, chemistry also nonspecific, test had been ordered on protocol. Discussed with patient. She states she would like to be completely evaluated by CAT scan imaging to make sure she has a hernia and then she is hoping to leave. CT does indicate supra umbilical hernia with possible fat but no bowel in the hernia, also possible fat strangulation with some possible stranding. I reevaluated patient, she is sleeping and easily aroused. She is requesting to leave with her results and referral to surgical clinic. I did discuss surgical consultation because of the possible fat strangulation but she declines. She has not had pain medication in several hours and she is currently pain-free, she tolerated p.o. without difficulty. Discussed with Dr. Rodriguez. Patient will be discharged with surgical follow-up and strict return precautions which were discussed. Patient states understanding and agreement. - Vital Signs Vital signs: Temp Pulse Resp BP Pulse Ox 97.5 F 73 18 108/62 98 01/29/19 06:33 01/29/19 06:33 01/29/19 06:33 01/29/19 06:33 01/29/19 06:33 - Laboratory Result Diagrams: 01/28/19 22:40 01/28/19 22:40 Laboratory results interpreted by me: 01/28/19 22:40 WBC 11.9 H Discharge - Discharge Clinical Impression: Supraumbilical hernia Abdominal pain Qualifiers: Abdominal location: generalized Qualified Code(s): R10.84 - Generalized abdominal pain Condition: Stable Disposition: HOME, SELF-CARE Additional Instructions: You have a ventral hernia as we discussed. This will need to be repaired. Follow-up closely with the surgical clinic referral, call today. You have been provided with some pain medication and I recommend that you take the stool softeners daily for the next several days, however if pain becomes severe, area becomes bulging and you cannot push it back in, you develop vomiting or fever, or any other concerning symptoms develop return immediately to the emergency department. Prescriptions: Docusate Sodium [Colace 100 mg Capsule] 100 mg PO ASDIR PRN #30 capsule PRN Reason: Hydrocodone/Acetaminophen [Dwight 5-325 mg Tablet] 1 - 2 tab PO ASDIR #10 tablet Forms: Smoking Cessation Education, Return to Work Referrals: [facility] [Provider Group] - Follow up tomorrow
--- NOTE | 2019-01-29 06:00 | RADIOLOGY REPORT (SQ) ---
CT abdomen and pelvis with contrast on 01/29/2019 at 5:13 AM CLINICAL INDICATION: Generalized abdominal pain, ventral hernia TECHNIQUE: Multiple axial images are obtained throughout the abdomen and pelvis following the administration of IV and oral contrast. 97 mL of Omnipaque 350 contrast was a general farmworker intravenously. This exam was performed according to our departmental dose-optimization program, which includes automated exposure control, adjustment of the mA and/or kV according to patient size and/or use of iterative reconstruction technique. Total DLP is 2264.37 mGy*cm. COMPARISON: 04/15/2018 FINDINGS: Abdomen: The lung bases are clear. There is fatty infiltration of the liver. Solid abdominal organs are otherwise unremarkable. There is no abdominal adenopathy. There has been increase in size of a right supraumbilical anterior abdominal wall hernia just to the right of midline seen on axial image 50 of series 3 and on sagittal image 54. This still contains only fat but there is fat stranding just deep to the hernia orifice in the anterior peritoneum that may represent some early incarceration or strangulation of the fat within this hernia. There is also a tiny umbilical hernia containing only fat. There is no free fluid or free air within the abdomen. The abdominal portion of the GI tract is unremarkable. Pelvis: The patient is status post hysterectomy. There is no free fluid in the pelvis. Pelvic portion of the GI tract including the appendix is unremarkable. There is no pelvic adenopathy. No acute bony abnormality is noted. IMPRESSION: 1. Mild increase in size of supraumbilical anterior abdominal wall hernia just to the right of midline containing fat but this does have some fat stranding deep to the hernia that may represent some early incarceration or strangulation of the fat within this hernia. 2. Fatty infiltration of the liver.
[2019-01-29] MEDS ORDERED: HYDROCODONE/ACETAMINOPHEN 5-325 MG (6 TAB/ER DISP) PO PRN (06:20)
[2019-01-29 06:34] VITALS: BP 108/62
== END 2019-01-29 06:33 | disposition home or self-care (01) ==
LOC: ER 22:06
DX: K43.9 Ventral hernia without obstruction or gangrene (principal); R10.84 Generalized abdominal pain; R11.0 Nausea; R10.33 Periumbilical pain; R05 Cough; F17.200 Nicotine dependence, unspecified, uncomplicated
CPT/HCPCS: 99284; 96361; 96374; 96375; 36415; 83690; 84703; 85025; 80053; 81001; 76700; 74177; J1170; J2405; J7030